=== PATIENT | female | born 1945 | race Caucasian/White ===

== ENCOUNTER 2017-10-04 08:29 | Observation (INO) | payer MEDICARE ==
[~2017-10-04] VITALS: Ht 167.6 cm; Wt 63.8 kg
[2017-10-04] MEDS ORDERED: LIPITOR10 M1 PO (09:06)
[2017-10-04] MEDS ORDERED: LOSARTAN POT50 MG PO (09:07)
[2017-10-04] MEDS ORDERED: METO50TA52 PO (09:07)
[2017-10-04 09:08] LABS: HEMATOCRIT 41.1 % (37.0-47.0); HEMOGLOBIN 13.5 g/dl (12.0-16.0); IMMATURE GRANULOCYTES 0.2 % (0.0-1.0); MEAN CELL VOLUME 89.5 fL CALC (80.0-100.0); MEAN CORPUSCULAR HGB 29.4 pG CALC (26.0-32.0); MEAN CORPUSCULAR HGB CONC 32.8 g/L CALC (32.0-36.0); NEUT# 5.74 thou/uL (2.00-7.15); RED BLOOD COUNT 4.59 mill/uL (4.20-5.60); RED CELL DISTRI WIDTH 12.5 % (11.5-15.5)
[2017-10-04] MEDS ORDERED: LEVOTHYROXIN50 MCG PO (09:08)
[2017-10-04] MEDS ORDERED: ASPIRIN 8181 MG PO (09:08)
[2017-10-04] MEDS ORDERED: VITAMIN B-12500 MCG PO (09:09)
[2017-10-04] MEDS ORDERED: [UNRECOGNIZED DRUG - OTHER] PO (09:10)
[2017-10-04] MEDS ORDERED: PROAIR HFA108 MCG/AC IN (09:10)
[2017-10-04 09:16] LABS: ALBUMIN 4.4 g/dL (3.2-5.0); ALKALINE PHOSPHATASE 108 u/l (38-126); ANION GAP 14 (6-22 (CALC)); BILIRUBIN, TOTAL 0.7 mg/dL (0.0-1.4); BUN 7 mg/dL (8-23); BUN/CREATININE RATIO 11 (12-20 (CALC)); CARBON DIOXIDE 24 mmol/l (22-30); CHLORIDE 107 mmol/l (95-108); CREATININE 0.6 mg/dL (0.5-1.0); GFR > 60 ML/MIN (>=60 (CALC)); GFR FOR AFR.AMER. > 60 ML/MIN (>=60 (CALC)); POTASSIUM 3.6 mmol/l (3.5-5.1); SGOT/AST 17 u/l (9-36); SGPT/ALT 28 u/l (11-66); SODIUM 142 mmol/l (137-146); TOTAL PROTEIN 7.5 g/dL (6.3-8.2)
[2017-10-04 11:25] VITALS: BP 159/84
[2017-10-04 16:02] VITALS: BP 156/85
[2017-10-04 19:22] VITALS: BP 145/76
[2017-10-04 19:32] VITALS: BP 160/108
[2017-10-04 23:57] VITALS: BP 140/76
[2017-10-05 04:18] VITALS: BP 122/73
[2017-10-05 06:29] LABS: HEMATOCRIT 37.8 % (37.0-47.0); HEMOGLOBIN 12.9 g/dl (12.0-16.0); MEAN CELL VOLUME 87.9 fL CALC (80.0-100.0); MEAN CORPUSCULAR HGB CONC 34.1 g/L CALC (32.0-36.0); RED BLOOD COUNT 4.3 mill/uL (4.20-5.60); RED CELL DISTRI WIDTH 12.8 % (11.5-15.5)
[2017-10-05 06:39] LABS: ANION GAP 14 (6-22 (CALC)); BUN 14 mg/dL (8-23); BUN/CREATININE RATIO 23 (12-20 (CALC)); CARBON DIOXIDE 26 mmol/l (22-30); CHLORIDE 103 mmol/l (95-108); CREATININE 0.6 mg/dL (0.5-1.0); GFR > 60 ML/MIN (>=60 (CALC)); GFR FOR AFR.AMER. > 60 ML/MIN (>=60 (CALC)); MAGNESIUM 2.2 mg/dL (1.6-2.3); POTASSIUM 3.7 mmol/l (3.5-5.1); SODIUM 138 mmol/l (137-146)
[2017-10-05 07:20] VITALS: BP 114/58
[2017-10-05 11:21] VITALS: BP 142/89
[2017-10-05] MEDS ORDERED: ZITHROMAX250 MG PO (13:15)
[2017-10-05] MEDS ORDERED: PREDNISONE10 MG PO (13:15)
[2017-10-05] MEDS ORDERED: ALBUTEROL SUL0.083 % IN (13:18)
== END 2017-10-05 14:35 | disposition home or self-care (01) ==
LOC: ED 08:29 → ED-I 10:19 → ED 10:37 → MS2 10:38
PROVIDERS: Emergency Medicine; ADMIT Internal Medicine; ATTEND Internal Medicine
DX: J44.1 Chronic obstructive pulmonary disease with (acute) exacerbation (principal); I10 Essential (primary) hypertension; I25.10 Atherosclerotic heart disease of native coronary artery without angina pectoris; F17.210 Nicotine dependence, cigarettes, uncomplicated; I25.2 Old myocardial infarction; Z86.73 Personal history of transient ischemic attack (TIA), and cerebral infarction without residual deficits; R06.02 Shortness of breath
CPT/HCPCS: J3475